=== PATIENT | male | born 1960 | race African-American/Black ===

== ENCOUNTER 2016-07-23 20:00 | Emergency (ER) | payer OTHER ==
[~2016-07-23] VITALS: Ht 175.3 cm; Wt 72.6 kg
[~2016-07-23 20:00] MED LIST: INSULIN; METFORMIN HCL1000 M1 ORAL
[2016-07-23] MEDS ORDERED: LORazepam Inj 2mg/ml 1ml IV ONE (20:15)
[2016-07-23 20:54] LABS: BASOPHILS % (AUTO) 1.8 % (0.0-2.0); EOSINOPHILS % (AUTO) 0.8 % (0.0-3.0); LYMPHOCYTES % (AUTO) 29.2 % (20.0-45.0); MEAN CORPUSCULAR HEMOGLOBIN 31.7 PG (27.0-31.0); MEAN CORPUSCULAR HGB CONC 34.9 G/DL (32.0-36.0); MEAN CORPUSCULAR VOLUME 91 FL (80-99); MEAN PLATELET VOLUME 9.4 FL (6.5-10.1); MONOCYTES % (AUTO) 8.2 % (1.0-10.0); PLATELET COUNT 152 K/UL (150-450); RED BLOOD COUNT 4.53 M/UL (4.70-6.10); RED CELL DISTRIBUTION WIDTH 12.4 % (11.6-14.8); WHITE BLOOD COUNT 4.9 K/UL (4.8-10.8)
[2016-07-23 20:57] LABS: TROPONIN I < 0.30 ng/mL (<=0.30)
[2016-07-23 20:58] LABS: ALANINE AMINOTRANSFERASE 170 U/L (3-41); ANION GAP 18 (5-15); ASPARTATE AMINO TRANSFERASE 202 U/L (5-40); CARBON DIOXIDE 22 mEQ/L (20-30); CHLORIDE 94 mEQ/L (98-107); CREATININE 0.9 mg/dL (0.7-1.2); GLOMERULAR FILTRATION RATE > 60 mL/min (>60); HEMOLYSIS 6; POTASSIUM 3.2 mEQ/L (3.4-4.9); SODIUM 134 mEQ/L (135-145); TOTAL PROTEIN 6.8 g/dL (6.6-8.7)
[2016-07-23 21:45] LABS: BILIRUBIN,DIRECT 0.6 mg/dL (0.1-0.3)
[2016-07-23 21:53] VITALS: BP 135/87
--- NOTE | 2016-07-23 22:07 | Emergency Room Report ---
History of Present Illness General Chief Complaint: Substance Abuse Source: Patient, EMS (KyleRohit) Present Illness HPI Patient is a 55-year-old male who presented after increased of facial pain as well as palpitations. Patient reportedly had had increased amounts of alcohol. He reported also using several substances. He stated this was do to have some pain he had after fall. The patient prior history of diabetes. He denies any fever. He reported having increased pain to his face (Rohit Wright) Allergies: Coded Allergies: PENICILLINS (Unverified Allergy, Unknown, 07/23/16) Patient History Reviewed Nursing Documentation: PMH: Agreed, PSxH: Agreed (Rohit Wright) Nursing Documentation-PMH Hx Diabetes: Yes (oRhit Wright) Review of Systems All Other Systems: negative except mentioned in HPI (Rohit Wright) Physical Exam Vital Signs Date Time Temp Pulse Resp B/P Pulse Ox O2 Delivery O2 Flow Rate FiO2 07/23/16 19:35 99.0 138 16 143/91 96 Room Air Sp02 EP Interpretation: reviewed, normal General Appearance: normal inspection, well appearing, no apparent distress, alert, GCS 15 Head: other - right forehead swelling ENT: normal ENT inspection, hearing grossly normal, normal voice, other - EOMI Neck: normal inspection, full range of motion, supple, no bony tend Respiratory: normal inspection, lungs clear, normal breath sounds, no respiratory distress, no retraction, no wheezing Cardiovascular #1: regular rate, rhythm, no edema Gastrointestinal: normal inspection, normal bowel sounds, non tender, soft, no guarding, no hernia Genitourinary: no CVA tenderness Musculoskeletal: normal inspection, back normal, normal range of motion Neurologic: normal inspection, alert, oriented x3, responsive, hose tender III-XII nml as tested, speech normal Psychiatric: normal inspection, judgement/insight normal, mood/affect normal Skin: normal color, no rash, hematoma - right side forehead (Rohit Wright) Medical Decision Making Diagnostic Impression: Primary Impression: Substance abuse Additional Impression: Facial contusion ER Course Patient is an increased palpitations and facial pain after fall. The differential diagnosis included was not limited to arrhythmia, thyroid storm, sepsis, anemia, myocardial infarction, alcohol withdrawal, stimulant abuse, caffeine overdose among others. Because of complexity of patient's case laboratory testing and imaging studies were ordered. The patient was given Ativan IV with improvement in his symptoms. I EKG interpreted by me showed sinus tachycardia with a rate of 114 there were no acute ST or T wave changes noted. Patient was observed in the emergency department and had gradual improvement in his tachycardia and agitation. Patient was endorsed to Dr. Arguello pending sobering and reevaluation. Labs Test 07/23/16 20:23 White Blood Count 4.9 K/UL (4.8-10.8) Red Blood Count 4.53 M/UL (4.70-6.10) Hemoglobin 14.4 G/DL (14.2-18.0) Hematocrit 41.1 % (42.0-52.0) Mean Corpuscular Volume 91 FL (80-99) Mean Corpuscular Hemoglobin 31.7 PG (27.0-31.0) Mean Corpuscular Hemoglobin Concent 34.9 G/DL (32.0-36.0) Red Cell Distribution Width 12.4 % (11.6-14.8) Platelet Count 152 K/UL (150-450) Mean Platelet Volume 9.4 FL (6.5-10.1) Neutrophils (%) (Auto) 60.0 % (45.0-75.0) Lymphocytes (%) (Auto) 29.2 % (20.0-45.0) Monocytes (%) (Auto) 8.2 % (1.0-10.0) Eosinophils (%) (Auto) 0.8 % (0.0-3.0) Basophils (%) (Auto) 1.8 % (0.0-2.0) Sodium Level 134 mEQ/L (135-145) Potassium Level 3.2 mEQ/L (3.4-4.9) Chloride Level 94 mEQ/L (98-107) Carbon Dioxide Level 22 mEQ/L (20-30) Anion Gap 18 (5-15) Blood Urea Nitrogen 12 mg/dL (7-23) Creatinine 0.9 mg/dL (0.7-1.2) Estimat Glomerular Filtration Rate > 60 mL/min (>60) Glucose Level 300 mg/dL (74-106) Calcium Level 9.0 mg/dL (8.6-10.2) Total Bilirubin 1.1 mg/dL (0.0-1.2) Direct Bilirubin 0.6 mg/dL (0.1-0.3) Aspartate Amino Transf (AST/SGOT) 202 U/L (5-40) Alanine Aminotransferase (ALT/SGPT) 170 U/L (3-41) Alkaline Phosphatase 145 U/L (40-129) Troponin I < 0.30 ng/mL (<=0.30) Total Protein 6.8 g/dL (6.6-8.7) Albumin 3.5 g/dL (3.5-5.2) Globulin 3.3 g/dL Albumin/Globulin Ratio 1.0 (1.0-2.7) (Rohit Wright) ER Course Received signout from Dr Wright for re-eval -Utox + for cocaine, PCP, MJ - Patient now awake, ambulating in ED. Made a couple of phone calls. Ate a sandwich. - C/o left neck pain, likely from the fall. - See Dr Wright's note for full HPI, PE and interpretation of imaging from trauma - Glucose down to 250 after treatment - Patient knows his address, wants to go home. - [facility] (STEPHANE ARGUELLO M.D.) EKG Diagnostic Results Rate: tachycardiac Rhythm: NSR ST Segments: no acute changes (Rohit Wright) CT/MRI/US Diagnostic Results CT/MRI/US Diagnostic Results : Imaging Test Ordered: CT head Impression old fracture to zygoma as well as post surgical changes. (Rohit Wright) Last Vital Signs Date Time Temp Pulse Resp B/P Pulse Ox O2 Delivery O2 Flow Rate FiO2 07/23/16 21:53 98.0 93 16 135/87 95 Room Air Status: improved (Rohit Wright) Status: improved (STEPHANE ARGUELLO M.D.) Disposition: HOME, SELF-CARE Condition: Stable Referrals: [facility],REFERRING (PCP) Rohit Wright Jul 23, 2016 22:07 STEPHANE ARGUELLO M.D. Jul 24, 2016 00:22
[2016-07-24] MEDS ORDERED: Methocarbamol 750mg tab ORAL ONE (00:30)
[2016-07-24 04:39] VITALS: BP_SYST 1; BP_SYST 135; BP_DIAS 1; BP_DIAS 87
--- NOTE | 2016-07-24 09:09 | Diagnostic Imaging Report ---
Indications: Ground-level fall, neck injury, pain Technique: 3 views of the cervical spine. Findings: Comparison: None. Lordotic curvature is preserved. Vertebral alignment is intact. No fracture, facet subluxation or dislocation, prevertebral soft tissue swelling, or other acute changes are identified. The C4-5 through C7-T1 disc spaces are narrowed with marginal osteophyte formation. Small osteophytes at C3-4 disc margin without narrowing. Surgical hardware overlies parietal skull.. IMPRESSION: No evidence of acute cervical injury. Degenerative spondylosis Previous craniotomy
--- NOTE | 2016-07-24 09:15 | Diagnostic Imaging Report ---
Indications: Fall, facial injury, pain Technique: Continuous helical CT imaging of the face was performed with automatic exposure control on a Siemens sensation [address] scanner. Axial and coronal images were reconstructed at 3 mm slice thickness. CTDI volume(s): 28.2 mGy Total DLP: 548 mGy-cm Findings: Comparison: None No acute fracture identified. Chronic appearing contour deformity right-sided nasal bone. Chronic appearing contour deformity left zygomatic arch. Focal defect medial wall right maxillary sinus. Mucoperiosteal thickening bilateral maxillary sinuses with right maxillary air-fluid level. Mastoid air cells clear. Orbital anatomy intact bilaterally. Right malar and periorbital/supraorbital soft tissues mildly swollen and increased attenuation. No associated gas or foreign body. IMPRESSION: Right periorbital/facial soft tissue swelling No other evidence of acute injury Old, healed fractures left zygomatic arch, nasal bone Bilateral maxillary sinusitis, status post prior right nasal antral window creation Written preliminary report placed in PACS and 07/23/16 at [id number]
--- NOTE | 2016-07-24 12:08 | Diagnostic Imaging Report ---
Indications: Fall, head trauma, pain Technique: Continuous helical CT imaging of the brain was performed with nonionic exposure control on a Siemens sensation [address] scanner. Axial and coronal images were reconstructed at 5 mm slice thickness and interval. CTDI volume(s): 70 mGy Total DLP: 1285 mGy-cm Findings: Comparison: None Wedge-shaped, peripherally based foci of low attenuation/parenchymal loss are present in the right frontal and parietal lobes, beneath the craniotomy defects. Mild low attenuation is present in the bilateral periventricular white matter. Ventricles, cisterns, and sulci are diffusely prominent. No evidence of mass or hemorrhage, mass effect, midline shift, hydrocephalus, or increased intracranial pressure. Bone window images are unremarkable. Visualized paranasal sinuses and mastoid air cells are clear. Right periorbital soft tissues and supraorbital scalp are swollen and increased attenuation. IMPRESSION: Right periorbital/supraorbital soft tissue swelling/hematoma No other evidence of acute injury Multifocal chronic encephalomalacia right cerebral hemisphere beneath the craniotomy defects. Correlate historically.. Bilateral cerebral periventricular white matter low attenuation, nonspecific, likely chronic microvascular ischemic in nature. Atrophy Written preliminary report placed in PACS 07/23/[address] scanner at [facility] is accredited by the [employer] and the scans are performed using protocols designed to limit radiation exposure to as low as reasonably achievable to attain images of sufficient resolution adequate for diagnostic evaluation.
--- NOTE | 2016-07-25 20:09 | Cardiology Report ---
APPROVED REPORT EKG Measurement Heart [id number] MA [id number] [id number] Sinus tachycardia Nonspecific T wave abnormality Abnormal ECG
== END 2016-07-24 04:35 | disposition home or self-care (01) ==
LOC: EDBD 20:00 → EMR 20:48
DX: S00.83XA Contusion of other part of head, initial encounter (principal); W19.XXXA Unspecified fall, initial encounter; Y92.89 Other specified places as the place of occurrence of the external cause; F14.10 Cocaine abuse, uncomplicated; E11.9 Type 2 diabetes mellitus without complications; Z88.0 Allergy status to penicillin; G93.89 Other specified disorders of brain; G31.9 Degenerative disease of nervous system, unspecified; M47.812 Spondylosis without myelopathy or radiculopathy, cervical region; Z98.890 Other specified postprocedural states; J32.0 Chronic maxillary sinusitis
CPT/HCPCS: 36415; 70450; 70486; 72040; 80053; 80300; 82248; 82962; 84484; 85025; 93005; 96374; 99284; J1815

== ENCOUNTER 2017-10-29 19:31 | Emergency (ER) | payer OTHER ==
[~2017-10-29] VITALS: Ht 175.3 cm; Wt 77.1 kg
[2017-10-29] MEDS ORDERED: Ketorolac 30mg Inj IV ONE (20:00)
--- NOTE | 2017-10-29 20:15 | Emergency Room Report ---
History of Present Illness General Chief Complaint: Dizziness Source: Patient, EMS Present Illness HPI Patient presents with weakness and falling episodes. His speech is been altered recently. He's been having polyuria and polydipsia. He stopped taking his insulin. He fell and hurt his tailbone. He denies any loss of consciousness. There is no unilateral weakness. Paramedics transported the patient. His glucose was 498. They performed MLAPPS on him that was negative. He has weakness generalized. No chest pain, dyspnea, NVD, dysuria, rashes, depression. Was eval July 2016 for substance abuse. + for cocaine, PCP, THC. Glucose controlled and d/c home. Prior fx zygoma (from CT July 2016) Allergies: Coded Allergies: PENICILLINS (Unverified Allergy, Unknown, 07/23/16) Patient History Past Medical History: see triage record, old chart reviewed Social History: Reports: alcohol use, drug use - see tox Social History Narrative from home Reviewed Nursing Documentation: PMH: Agreed; PSxH: Agreed Nursing Documentation-PMH Past Medical History: No History, Except For Hx Cardiac Problems: Yes - high cholesterol Hx Hypertension: Yes Hx Diabetes: Yes Review of Systems All Other Systems: negative except mentioned in HPI Physical Exam Vital Signs Date Time Temp Pulse Resp B/P (MAP) Pulse Ox O2 Delivery O2 Flow Rate FiO2 10/29/17 19:24 99.2 110 16 116/56 99 Room Air 99.1 Sp02 EP Interpretation: reviewed, normal General Appearance: well appearing, no apparent distress, GCS 15 Head: normocephalic, atraumatic Eyes: bilateral eye PERRL, bilateral eye Scleral Injection ENT: moist mucus membranes Neck: supple Respiratory: lungs clear, normal breath sounds Cardiovascular #1: regular rate, rhythm Cardiovascular #2: 2+ radial (R) Gastrointestinal: normal inspection, normal bowel sounds, soft, no mass, non- distended, tenderness - diffuse Musculoskeletal: back normal - tailbone tenderness, gait/station normal, normal range of motion Neurologic: alert, oriented x3, import clerk III-XII nml as tested, motor strength/tone normal, DTRs symmetric, sensory intact, speech normal Psychiatric: mood/affect normal Skin: warm/dry, other - superficial lac L eyebrow, chronic dermatitis hands Medical Decision Making Diagnostic Impression: Primary Impression: Hyperglycemia Additional Impressions: Abdominal pain Qualified Codes: R10.84 - Generalized abdominal pain Cocaine abuse Falling episodes ER Course Patient presents with weakness and hyperglycemia. Differential includes DKA, nonketotic hyperglycemia, hypoglycemia, other electrolyte imbalances, occult infection and acute myocardial infarction. Evaluation will be with EKG, chest x -ray and labs. The patient will receive IV hydration and most likely will be receiving insulin. Toradol given for pain. EKG without injury. CXR no infiltrates. Labs with elevated glucose and bicarb. Tox + for cocaine. No evidence of DKA. Insulin drip not indicated. After boluses of NS, insulin given. Min decrease in glucose. Pain improved. Presented to Dr. Escobar. Transfer to [facility]. Laboratory Tests Test 10/29/17 20:35 White Blood Count 4.2 K/UL (4.8-10.8) L Red Blood Count 5.02 M/UL (4.70-6.10) Hemoglobin 15.0 G/DL (14.2-18.0) Hematocrit 44.5 % (42.0-52.0) Mean Corpuscular Volume 89 FL (80-99) Mean Corpuscular Hemoglobin 29.9 PG (27.0-31.0) Mean Corpuscular Hemoglobin Concent 33.7 G/DL (32.0-36.0) Red Cell Distribution Width 11.1 % (11.6-14.8) L Platelet Count 195 K/UL (150-450) Mean Platelet Volume 8.4 FL (6.5-10.1) Neutrophils (%) (Auto) 44.8 % (45.0-75.0) L Lymphocytes (%) (Auto) 39.9 % (20.0-45.0) Monocytes (%) (Auto) 11.6 % (1.0-10.0) H Eosinophils (%) (Auto) 2.0 % (0.0-3.0) Basophils (%) (Auto) 1.6 % (0.0-2.0) Prothrombin Time 10.6 SEC (9.30-11.50) Prothrombin Time INR 1.0 (0.9-1.1) PTT 26 SEC (23-33) Urine Color Pale yellow Urine Appearance Clear Urine pH 7 (4.5-8.0) Urine Specific [place] 1.005 (1.005-1.035) Urine Protein Negative (NEGATIVE) Urine Glucose (UA) 4+ (NEGATIVE) H Urine Ketones 1+ (NEGATIVE) H Urine Blood Negative (NEGATIVE) Urine Nitrite Negative (NEGATIVE) Urine Bilirubin Negative (NEGATIVE) Urine Urobilinogen Normal MG/DL (0.0-1.0) Urine Leukocyte Esterase Negative (NEGATIVE) Sodium Level 134 MMOL/L (136-145) L Potassium Level 4.6 MMOL/L (3.5-5.1) Chloride Level 98 MMOL/L (98-107) Carbon Dioxide Level 30 MMOL/L (21-32) Anion Gap 6 mmol/L (5-15) Blood Urea Nitrogen 18 mg/dL (7-18) Creatinine 1.5 MG/DL (0.55-1.30) H Estimate Glomerular Filtration Rate 58.1 mL/min (>60) Glucose Level 522 MG/DL (74-106) *H Calcium Level 9.4 MG/DL (8.5-10.1) Total Bilirubin 0.9 MG/DL (0.2-1.0) Aspartate Amino Transferase (AST) 68 U/L (15-37) H Alanine Aminotransferase (ALT) 79 U/L (12-78) H Alkaline Phosphatase 153 U/L (46-116) H Total Creatine Kinase 211 U/L (26-308) Troponin I 0.000 ng/mL (0.000-0.056) Pro-B-Type Natriuretic Peptide 211 pg/mL (0-125) H Total Protein 7.7 G/DL (6.4-8.2) Albumin 3.2 G/DL (3.4-5.0) L Globulin 4.5 g/dL Albumin/Globulin Ratio 0.7 (1.0-2.7) L Lipase 101 U/L (73-393) Urine Opiates Screen Negative (NEGATIVE) Urine Barbiturates Screen Negative (NEGATIVE) Phencyclidine (PCP) Screen Negative (NEGATIVE) Urine Amphetamines Screen Negative (NEGATIVE) Urine Benzodiazepines Screen Negative (NEGATIVE) Urine Cocaine Screen Positive (NEGATIVE) H Urine Marijuana (THC) Screen Positive (NEGATIVE) H EKG Diagnostic Results Rate: tachycardiac ST Segments: no acute changes Rhythm Strip Diag. Results EP Interpretation: yes Rhythm: NSR, no PVC's, no ectopy Chest X-Ray Diagnostic Results Chest X-Ray Diagnostic Results : Chest X-Ray Ordered: Yes # of Views/Limited/Complete: 1 View Indication: Other EP Interpretation: Yes Interpretation: no consolidation, no effusion, no pneumothorax Impression: No acute disease Electronically Signed by: Electronically signed by Dick Blanco MD Last Vital Signs Date Time Temp Pulse Resp B/P (MAP) Pulse Ox O2 Delivery O2 Flow Rate FiO2 10/29/17 23:00 98.0 16 116/56 99 Room Air 98.0 10/29/17 19:24 110 Status: improved Disposition: [facility] Condition: Serious Dick Blanco M.D. Oct 29, 2017 20:15
[2017-10-29 20:46] VITALS: BP 116/56
[2017-10-29 20:46] LABS: APPEARANCE,URINE CLEAR; BILIRUBIN, URINE NEGATIVE (NEGATIVE); COLOR,URINE PALE YELLOW; GLUCOSE, URINE (UA) 4+ (NEGATIVE); KETONES,URINE 1+ (NEGATIVE); LEUKOCYTE ESTERASE ,URINE NEGATIVE (NEGATIVE); NITRITE,URINE NEGATIVE (NEGATIVE); PH,URINE 7 (4.5-8.0); PROTEIN,URINE NEGATIVE (NEGATIVE); UROBILINOGEN,URINE NORMAL MG/DL (0.0-1.0)
[2017-10-29 20:48] LABS: BASOPHILS % (AUTO) 1.6 % (0.0-2.0); HEMATOCRIT 44.5 % (42.0-52.0); LYMPHOCYTES % (AUTO) 39.9 % (20.0-45.0); MEAN CORPUSCULAR VOLUME 89 FL (80-99); MONOCYTES % (AUTO) 11.6 % (1.0-10.0); NEUTROPHILS % (AUTO) 44.8 % (45.0-75.0); PLATELET COUNT 195 K/UL (150-450); RED BLOOD COUNT 5.02 M/UL (4.70-6.10); RED CELL DISTRIBUTION WIDTH 11.1 % (11.6-14.8); WHITE BLOOD COUNT 4.2 K/UL (4.8-10.8)
[2017-10-29 21:08] LABS: ALANINE AMINOTRANSFERASE 79 U/L (12-78); ALBUMIN 3.2 G/DL (3.4-5.0); ALBUMIN/GLOBULIN RATIO 0.7 (1.0-2.7); ALKALINE PHOSPHATASE 153 U/L (46-116); ANION GAP 6 mmol/L (5-15); ASPARTATE AMINO TRANSFERASE 68 U/L (15-37); BILIRUBIN,TOTAL 0.9 MG/DL (0.2-1.0); BLOOD UREA NITROGEN 18 mg/dL (7-18); CALCIUM 9.4 MG/DL (8.5-10.1); CARBON DIOXIDE 30 MMOL/L (21-32); CHLORIDE 98 MMOL/L (98-107); CREATINE KINASE 211 U/L (26-308); CREATININE 1.5 MG/DL (0.55-1.30); POTASSIUM 4.6 MMOL/L (3.5-5.1); SODIUM 134 MMOL/L (136-145)
[2017-10-29] MEDS ORDERED: Insulin Human Regular 100units/ml 3ml IV ONE ×2 (21:15)
[2017-10-29 23:00] VITALS: BP 116/56
--- NOTE | 2017-10-30 10:59 | Diagnostic Imaging Report ---
Indication: Chest pain Technique: One view of the chest Comparison: none Findings: Lungs and pleural spaces are clear. Heart size is normal. Impression: Negative
--- NOTE | 2017-10-30 15:48 | Cardiology Report ---
APPROVED REPORT EKG Measurement Heart [id number] DC 128P31 [id number] Sinus tachycardia with premature supraventricular complexes Otherwise normal ECG
== END 2017-10-29 22:30 | disposition short-term general hospital (02) ==
LOC: EDBD 19:31 → EMR 20:30
DX: E11.65 Type 2 diabetes mellitus with hyperglycemia (principal); R10.9 Unspecified abdominal pain; F14.10 Cocaine abuse, uncomplicated; S01.112A Laceration without foreign body of left eyelid and periocular area, initial encounter; W19.XXXA Unspecified fall, initial encounter; Y92.9 Unspecified place or not applicable; L30.9 Dermatitis, unspecified; R29.6 Repeated falls; Z88.0 Allergy status to penicillin; I10 Essential (primary) hypertension; Z91.14 Patient's other noncompliance with medication regimen
CPT/HCPCS: 36415; 71045; 80053; 80307; 81003; 82550; 83690; 83880; 84484; 85025; 85610; 85730; 93005; 96361; 96374; 99285; J1815; J1885

== ENCOUNTER 2018-01-01 14:29 | Emergency (ER) | payer OTHER ==
[~2018-01-01] VITALS: Ht 167.6 cm; Wt 74.8 kg
[2018-01-01 14:33] VITALS: BP 126/80
--- NOTE | 2018-01-01 16:48 | Diagnostic Imaging Report ---
Indication: Low back pain, unable to walk Technique: Sagittal T1 and T2 fast spin echo, sagittal STIR, axial T1 and T2 fast spin-echo images of the lumbar spine Comparison: none Findings: Bony alignment is normal. Vertebral marrow signal is normal except for some Modic type I degenerative changes involving the L4 vertebral body. The disc spaces are preserved. Vertebral body heights are preserved. The conus medullaris terminates at the mid L2 level. At L3-4, there is bilateral subarticular and intraforaminal broad-based disc protrusion, without significant central disc protrusion, which may impinge upon the bilateral lateral recesses, although does not result in any significant spinal stenosis. This is slightly more severe on the right than on the left There is mild compromise of the bilateral neural foramina by the bulging disc. There is mild bilateral facet arthrosis at this level. At L4-5, there is broad-based central and bilateral intraforaminal disc protrusion which results in mild narrowing of the spinal canal, minimum AP dimension of 9 mm, but no significant nerve root clumping and there is preserved CSF around the nerve roots. This may compromise the bilateral lateral recesses at this level, however. There is mild to moderate compromise of the bilateral neural foramina, predominantly by the bulging disc but also by facet hypertrophy secondary to facet arthrosis. At L5-S1, there is minimal central broad-based posterior disc protrusion which does not compromise the spinal canal. Facet arthrosis bilaterally results in moderate narrowing of the bilateral neural foramina. At the remaining disc levels, no significant disc bulge or protrusion, spinal stenosis, or neural foraminal stenosis. Included extraspinal soft tissues are unremarkable. Impression: Multilevel degenerative changes as described, with central, bilateral lateral recess, and neural foraminal stenoses predominantly at L5-3-4 and L4-5. No high-grade central canal stenosis or evidence of spinal dysraphism to suggest etiology of stated clinical history of cauda equina syndrome.
[2018-01-01 16:50] LABS: BASOPHILS % (AUTO) 2.3 % (0.0-2.0); HEMATOCRIT 39.8 % (42.0-52.0); LYMPHOCYTES % (AUTO) 43.1 % (20.0-45.0); MEAN CORPUSCULAR VOLUME 85 FL (80-99); MONOCYTES % (AUTO) 11.5 % (1.0-10.0); NEUTROPHILS % (AUTO) 42.2 % (45.0-75.0); PLATELET COUNT 185 K/UL (150-450); RED BLOOD COUNT 4.68 M/UL (4.70-6.10); RED CELL DISTRIBUTION WIDTH 10.3 % (11.6-14.8); WHITE BLOOD COUNT 4.2 K/UL (4.8-10.8)
[2018-01-01 16:51] LABS: APPEARANCE,URINE CLEAR; BILIRUBIN, URINE NEGATIVE (NEGATIVE); COLOR,URINE PALE YELLOW; GLUCOSE, URINE (UA) 4+ (NEGATIVE); KETONES,URINE 2+ (NEGATIVE); LEUKOCYTE ESTERASE ,URINE 1+ (NEGATIVE); NITRITE,URINE NEGATIVE (NEGATIVE); PH,URINE 6.5 (4.5-8.0); PROTEIN,URINE 1+ (NEGATIVE); UROBILINOGEN,URINE NORMAL MG/DL (0.0-1.0)
[2018-01-01 17:04] LABS: ANION GAP 11 mmol/L (5-15); BLOOD UREA NITROGEN 21 mg/dL (7-18); CALCIUM 9.5 MG/DL (8.5-10.1); CARBON DIOXIDE 28 MMOL/L (21-32); CHLORIDE 93 MMOL/L (98-107); CREATININE 1.5 MG/DL (0.55-1.30); POTASSIUM 4.1 MMOL/L (3.5-5.1); SODIUM 131 MMOL/L (136-145)
[2018-01-01 17:29] LABS: ALANINE AMINOTRANSFERASE 242 U/L (12-78); ALBUMIN 2.8 G/DL (3.4-5.0); ALBUMIN/GLOBULIN RATIO 0.6 (1.0-2.7); ALKALINE PHOSPHATASE 211 U/L (46-116); ASPARTATE AMINO TRANSFERASE 260 U/L (15-37); BILIRUBIN,TOTAL 1.1 MG/DL (0.2-1.0)
[2018-01-01 17:30] VITALS: BP 128/89
[2018-01-01 17:30] LABS: BILIRUBIN,DIRECT 0.6 MG/DL (0.0-0.3)
--- NOTE | 2018-01-01 17:31 | Emergency Room Report ---
History of Present Illness General Chief Complaint: General Complaint Source: Patient Present Illness HPI 57-year-old male patient since the ER brought in by a months complaining of back pain and penile pain. Patient reports back pain is been present for several days. Reports multiple history of episodes of falling. Reports trip and fall injuries. Denies dizziness or syncope. Denies hitting his head or loss consciousness. Reports bladder incontinence during this time. Denies dysuria, hematuria. Reports pain radiating down his legs. Also complaining of "white discharge" on his penis preventing him from retracting his foreskin. Reports has been present for "awhile", does not know when first presented.. denies fever, chest pain, shortness of breath. denies recent sexual activity. Denies dysuria, hematuria. Denies penile discharge. reports history of diabetes, states takes medication. Allergies: Coded Allergies: PENICILLINS (Unverified Allergy, Unknown, 07/23/16) Patient History Past Medical History: see triage record Reviewed Nursing Documentation: PMH: Agreed; PSxH: Agreed Nursing Documentation-PMH Hx Cardiac Problems: Yes - high cholesterol Hx Hypertension: Yes Hx Diabetes: Yes Review of Systems All Other Systems: negative except mentioned in HPI Physical Exam Vital Signs Date Time Temp Pulse Resp B/P (MAP) Pulse Ox O2 Delivery O2 Flow Rate FiO2 01/01/18 14:23 98.1 68 18 126/80 98 Room Air Sp02 EP Interpretation: reviewed, normal General Appearance: well appearing, no apparent distress, alert, GCS 15, non- toxic Head: normocephalic, atraumatic Eyes: bilateral eye normal inspection, bilateral eye PERRL ENT: hearing grossly normal, normal pharynx, no angioedema, normal voice, uvula midline, moist mucus membranes Neck: full range of motion Respiratory: lungs clear, normal breath sounds, no rhonchi, no respiratory distress, no accessory muscle use, no wheezing, speaking full sentences Cardiovascular #1: regular rate, rhythm, no edema Cardiovascular #2: 2+ dorsalis pedis (R), 2+ dorsalis pedis (L) Musculoskeletal: back normal, digits/nails normal, gait/station normal, normal range of motion, non-tender Neurologic: alert, oriented x3, responsive, 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 Choi is my supervising Physician whom patient management has been discussed with. Diagnostic Impression: Primary Impression: Chronic back pain Additional Impressions: Radiculopathy Alcoholic hepatitis Polysubstance abuse Hx of diabetes mellitus Balanoposthitis ER Course Pt. presents to the ED c/o back pain, urine incontinence, "white crust on to the penis". Ddx considered but are not limited to chronic back pain, radiculopathy, sciatica , cauda equina, discrimination, stenosis, phimosis, paraphimosis, UTI, cellulitis, fungal infection, balantitis, opioid dependence, alcohol intoxication. denies hitting head or loss consciousness, cranial nerves intact as tested, no focal neuro deficits, does not require CT head at this time. patient complains of low back pain with bladder incontinence, will order MRI lumbar spine to rule out cauda equina. Vital signs: are WNL, pt. is afebrile ER COURSE: Provided with pain medication. Patient requesting food, provided with in the ER. physical exam, straight leg raise negative, knee reflexes intact bilaterally MRI lumbar spine negative for cauda equina consciousness, show stenosis. advised patient follow-up with primary care provider evaluation and treatment. CBC and CMP shows no signs of elevated WBCs consistent with infection, elevated LFTs and bilirubin consistent with alcoholic hepatitis. Advised patient against alcohol use. Do not drink alcohol in excess. Blood glucose, patient has history of diabetes, provided patient with IV fluids while in the ER, follow with primary care provider for further management and treatment of diabetes. elevated BUN/creatinine, consistent with previous visit, okay for outpatient follow-up and management. UA shows elevated glucose consistent with history of diabetes, no signs of infection requiring antibiotics. urine drug screen positive for cocaine and marijuana. Advised patient against use. Denies fever, chest pain, shortness of breath, some cardiac workup at this time. discussed lab results with , agrees with assessment and treatment plan. physical exam patient shows unable to retract foreskin of penis completely due to white crusts, consistent with fungal infection inducing balanoposthitis causing phimosis. Able to retract far enough to exposure urethra, no erythema or edema preventing exposure of urethra, should be able to urinate without difficulty, does not require immediate intervention and treatment at this time. Advised on complications if goes untreated. Advised patient to keep clean and dry, wash regularly, practice good hygiene habits, clean regularly. advised patient to return here immediately if unable to urinate due to infection. Will provide patient with topical antifungal medication. Informed patient to continue to slowly retract foreskin. Likely leading to bladder symptoms previously reported by patient with not being able to control when he goes due to phimosis. follow with primary care provider and discuss referral to a specialist as needed. Follow-up with STI clinic. Denies recent sexual activity , does not require treatment for STI at this time. f/u with STI or PCP for testing and treatment as needed. Patient resting comfortably no distress, nontoxic appearing. Patient able ambulate independently without difficulty. patient smiling, eating food, drinking juice, okay for discharge at this time. ER precautions given. DISCHARGE: At this time pt is stable for d/c to home. Patient is resting comfortably, in no acute distress, nontoxic appearing, talking without difficulty. Patient to take medications as instructed Will provide with patient care instructions and any necessary prescriptions. Care plan and follow-up instructions provided. Patient instructed to follow-up with primary care provider in 3 - 5 days. Patient questions asked and answered. Patient reports understanding and agreement to treatment plan. ER precautions given. Patient instructed to return to ER immediately for any new or worsening of symptoms including but not limited to increasing SOB, persistent fever, chest pain, intractable vomiting. - Please note that this Emergency Department Report was dictated using SIPphonesurgical scrub technologist technology software, occasionally this can lead to erroneous entry secondary to interpretation by the dictation equipment. Labs Test 01/01/18 16:00 01/01/18 16:25 Urine Color Pale yellow Urine Appearance Clear Urine pH 6.5 (4.5-8.0) Urine Specific [place] 1.005 (1.005-1.035) Urine Protein 1+ (NEGATIVE) Urine Glucose (UA) 4+ (NEGATIVE) Urine Ketones 2+ (NEGATIVE) Urine Blood Negative (NEGATIVE) Urine Nitrite Negative (NEGATIVE) Urine Bilirubin Negative (NEGATIVE) Urine Urobilinogen Normal MG/DL (0.0-1.0) Urine Leukocyte Esterase 1+ (NEGATIVE) Urine RBC 0-2 /HPF (0 - 0) Urine WBC 2-4 /HPF (0 - 0) Urine Squamous Epithelial Cells None /LPF (NONE/OCC) Urine Bacteria Few /HPF (NONE) Urine Opiates Screen Negative (NEGATIVE) Urine Barbiturates Screen Negative (NEGATIVE) Phencyclidine (PCP) Screen Negative (NEGATIVE) Urine Amphetamines Screen Negative (NEGATIVE) Urine Benzodiazepines Screen Negative (NEGATIVE) Urine Cocaine Screen Positive (NEGATIVE) Urine Marijuana (THC) Screen Positive (NEGATIVE) White Blood Count 4.2 K/UL (4.8-10.8) Red Blood Count 4.68 M/UL (4.70-6.10) Hemoglobin 14.0 G/DL (14.2-18.0) Hematocrit 39.8 % (42.0-52.0) Mean Corpuscular Volume 85 FL (80-99) Mean Corpuscular Hemoglobin 30.0 PG (27.0-31.0) Mean Corpuscular Hemoglobin Concent 35.3 G/DL (32.0-36.0) Red Cell Distribution Width 10.3 % (11.6-14.8) Platelet Count 185 K/UL (150-450) Mean Platelet Volume 8.0 FL (6.5-10.1) Neutrophils (%) (Auto) 42.2 % (45.0-75.0) Lymphocytes (%) (Auto) 43.1 % (20.0-45.0) Monocytes (%) (Auto) 11.5 % (1.0-10.0) Eosinophils (%) (Auto) 1.0 % (0.0-3.0) Basophils (%) (Auto) 2.3 % (0.0-2.0) Sodium Level 131 MMOL/L (136-145) Potassium Level 4.1 MMOL/L (3.5-5.1) Chloride Level 93 MMOL/L (98-107) Carbon Dioxide Level 28 MMOL/L (21-32) Anion Gap 11 mmol/L (5-15) Blood Urea Nitrogen 21 mg/dL (7-18) Creatinine 1.5 MG/DL (0.55-1.30) Estimat Glomerular Filtration Rate 58.1 mL/min (>60) Glucose Level 383 MG/DL (74-106) Calcium Level 9.5 MG/DL (8.5-10.1) Total Bilirubin 1.1 MG/DL (0.2-1.0) Direct Bilirubin 0.6 MG/DL (0.0-0.3) Aspartate Amino Transf (AST/SGOT) 260 U/L (15-37) Alanine Aminotransferase (ALT/SGPT) 242 U/L (12-78) Alkaline Phosphatase 211 U/L (46-116) Total Protein 7.8 G/DL (6.4-8.2) Albumin 2.8 G/DL (3.4-5.0) Globulin 5.0 g/dL Albumin/Globulin Ratio 0.6 (1.0-2.7) Lipase 253 U/L (73-393) CT/MRI/US Diagnostic Results CT/MRI/US Diagnostic Results : Imaging Test Ordered: MRI lumbar spine Impression Impression: Multilevel degenerative changes as described, with central, bilateral lateral recess, and neural foraminal stenoses predominantly at L5-3-4 and L4-5. No high-grade central canal stenosis or evidence of spinal dysraphism to suggest etiology of stated clinical history of cauda equina syndrome. Last Vital Signs Date Time Temp Pulse Resp B/P (MAP) Pulse Ox O2 Delivery O2 Flow Rate FiO2 01/01/18 14:33 68 18 Room Air 01/01/18 14:23 98.1 126/80 98 Disposition: HOME, SELF-CARE Condition: Stable Scripts Lidocaine (Lidocaine) 1 Each Adh..patch 5 % TP DAILY for 7 Days, #7 PATCH Prov: Beau San 01/01/18 Nystatin* (NYSTATIN*) 15 Gm Cream..g. 1 APPLIC TOPIC THREE TIMES A DAY, #15 GM Prov: Beau San 01/01/18 Acetaminophen* (TYLENOL EXTRA STRENGTH*) 500 Mg Tablet 500 MG ORAL Q8H PRN for Prn Headache/Temp > 101, #30 TAB 0 Refills Prov: Beau San 01/01/18 Referrals: [facility],REFERR[facility] (PCP) Patient Instructions: Alcoholic Hepatitis, Lumbosacral Radiculopathy, Phimosis , Pediatric Additional Instructions: Patient instructed to follow up with primary care provider 3-5 and discuss further referral and imaging at that time. Follow-up with urology specialist or dermatology. Continue to slowly retract foreskin. Applied cream to affected area. Do not drink alcohol or smoke marijuana in excess. Do not use drugs. Don't smoke. Patient instructed on rest, ice and heat. Do not take muscle relaxant prior to drinking, driving, or operating heavy machinery. Take medications as directed. Patient questions asked and answered. ER precautions given, patient instructed to return to ER immediately for any new or worsening of symptoms. [facility] [address] [facility] [address] [facility], [id number] [email or web address] Beau San Jan 01, 2018 17:31
[2018-01-01 18:46] VITALS: BP 132/83
[2018-01-01] MEDS ORDERED: TYLENOL EXTRA500 MG ORAL (18:47)
[2018-01-01] MEDS ORDERED: NYSTATIN15 GM TOPIC (18:47)
[2018-01-01] MEDS ORDERED: LIDOCAINE700 M1 TP (18:47)
[2018-01-01 19:30] VITALS: BP 130/80
[2018-01-01 19:35] VITALS: BP 132/83
== END 2018-01-01 21:07 | disposition home or self-care (01) ==
LOC: EDBD 14:29 → EMR 15:51
DX: M54.9 Dorsalgia, unspecified (principal); G89.29 Other chronic pain; M54.10 Radiculopathy, site unspecified; K70.10 Alcoholic hepatitis without ascites; F19.10 Other psychoactive substance abuse, uncomplicated; E11.9 Type 2 diabetes mellitus without complications; N47.6 Balanoposthitis; I10 Essential (primary) hypertension; E78.00 Pure hypercholesterolemia, unspecified; Z88.0 Allergy status to penicillin
CPT/HCPCS: 36415; 72148; 80053; 80307; 81003; 82248; 83690; 85025; 96360; 99284